=== PATIENT | female | born 1940 | race Caucasian/White ===

== ENCOUNTER 2018-10-05 19:20 | Inpatient (IN) | payer MEDICARE ==
[~2018-10-05] VITALS: Ht 170.2 cm; Wt 80.8 kg
--- NOTE | 2018-10-05 20:07 | NUR ---
PT SENT [facility] FOR CT OF LEFT ARM/SHOULDER. PT HAS PAIN WITH MOVEMENT. VSS. HX OF HTN AND [place] IN 2015. SLING IN PLACE TO SUPPORT ARM. CALL LIGHT IN REACH
[2018-10-05] MEDS ORDERED: ONDANSETRON 2MG/ML, 2ML ONE (20:30)
[2018-10-05] MEDS ORDERED: HYDROmorphone 2 MG/ML, 1ML ONE (20:30)
[2018-10-05] MEDS ORDERED: ONDANSETRON 2MG/ML, 2ML IVPush ONE (20:30)
[2018-10-05] MEDS ORDERED: SODIUM CHLORIDE FLUSH 10ML SYR IVF ONE (20:30)
[2018-10-05] MEDS ORDERED: HYDROmorphone 2 MG/ML, 1ML IVPush PRN (20:30)
[2018-10-05 20:37] LABS: BASOPHILS # (AUTO) 0.04 x10^3/uL (0-0.1); BASOPHILS % (AUTO) 0 % (0-1); EOSINOPHILS # (AUTO) 0.06 x10^3/uL (0-0.4); EOSINOPHILS % (AUTO) 1 % (1-7); LYMPHOCYTES % (AUTO) 11 % (22-44); MD NO; MEAN CORPUSCULAR HGB CONC 33.6 g/dL (32.4-35.8); MEAN CORPUSCULAR VOLUME 95.3 fL (80-100); MEAN PLATELET VOLUME 8.3 fL (7.4-10.4); MONOCYTES # (AUTO) 0.97 x10^3/uL (0.2-0.8); MONOCYTES % (AUTO) 9 % (2-9); NEUTROPHILS # (AUTO) 8.23 x10^3/uL (1.8-6.8); NEUTROPHILS % (AUTO) 79 % (42-75); PLATELET COUNT 271 x10^3/uL (130-400); RED BLOOD COUNT 3.89 x10^6/uL (3.82-5.3); RED CELL DISTRIBUTION WIDTH 14.1 % (9.6-15.2)
[2018-10-05] MEDS ORDERED: ASPI-496 PO (20:44)
[2018-10-05] MEDS ORDERED: CARV6.2512 PO (20:44)
[2018-10-05] MEDS ORDERED: LISI40TA PO (20:44)
[2018-10-05] MEDS ORDERED: PRED20TA PO (20:44)
[2018-10-05] MEDS ORDERED: CHLO25TA PO (20:44)
[2018-10-05] MEDS ORDERED: CLON0.1T22 PO (20:45)
[2018-10-05 20:48] LABS: INTERNATIONAL NORMALIZED RATIO 1.03 (0.93-1.1); PROTHROMBIN TIME 10.9 Seconds (9.6-11.5)
[2018-10-05 20:49] LABS: ALANINE AMINOTRANSFERASE 16 U/L (12-78); ALBUMIN 3.8 g/dL (3.4-5.0); ANION GAP 9 mmol/L (5-15); CALCIUM 8.6 mg/dL (8.5-10.1); CHLORIDE 104 mmol/L (98-107); CREATININE 1.28 mg/dL (0.55-1.02)
[2018-10-05 20:51] LABS: ALKALINE PHOSPHATASE 72 U/L (45-117); BILIRUBIN,TOTAL 0.8 mg/dL (0.2-1.0); TOTAL PROTEIN 7.2 g/dL (6.4-8.2)
--- NOTE | 2018-10-05 21:06 | NUR ---
PIV PLACED AND PT MEDICATED FOR PAIN. VSS. PT BACK FROM CT. CALL LIGHT IN REACH
--- NOTE | 2018-10-05 22:15 | NUR ---
PT RESTING. VSS. PT SAYS PAIN HAS IMPROVED AND IS COMFORTABLE. CALL LIGHT IN REACH
[2018-10-05] MEDS ORDERED: SODIUM CHLORIDE FLUSH 10ML SYR IVF PRN (22:30)
[2018-10-05 23:18] VITALS: BP 148/83
[2018-10-05] MEDS: morphine SULFATE 10 MG/ML, 1ML IVPush PRN (23:29)
[2018-10-05] MEDS ORDERED: ONDANSETRON 2MG/ML, 2ML IVPush PRN (23:30)
[2018-10-05] MEDS ORDERED: KETOROLAC 30 MG/1 ML IV PRN (23:30)
[2018-10-05] MEDS ORDERED: HYDROcodone/APAP 5/325 TABLET PO PRN (23:30)
[2018-10-05] MEDS ORDERED: IBUPROFEN 600 MG TABLET PO PRN (23:30)
[2018-10-05] MEDS ORDERED: ACETAMINOPHEN 325 MG TABLET PO PRN (23:30)
[2018-10-05] MEDS ORDERED: ZOLPIDEM 5MG TABLET PO PRN (23:30)
[2018-10-05] MEDS: ENOXAPARIN 40 MG/0.4 ML SQ SCH (23:30)
[2018-10-06 01:36] VITALS: BP 117/74
[2018-10-06] MEDS: morphine SULFATE 10 MG/ML, 1ML IVPush PRN ×2 (05:27→10:03)
[2018-10-06 05:50] LABS: ANION GAP 6 mmol/L (5-15); CHLORIDE 105 mmol/L (98-107)
[2018-10-06 05:52] LABS: CREATININE 1.17 mg/dL (0.55-1.02)
[2018-10-06 06:33] LABS: BASOPHILS # (AUTO) 0.04 x10^3/uL (0-0.1); BASOPHILS % (AUTO) 1 % (0-1); EOSINOPHILS # (AUTO) 0.11 x10^3/uL (0-0.4); EOSINOPHILS % (AUTO) 2 % (1-7); LYMPHOCYTES # (AUTO) 1.28 x10^3/uL (1-3.4); LYMPHOCYTES % (AUTO) 18 % (22-44); MD NO; MEAN CORPUSCULAR HEMOGLOBIN 31.8 pg (27.0-34.8); MEAN CORPUSCULAR HGB CONC 33.5 g/dL (32.4-35.8); MEAN PLATELET VOLUME 8.4 fL (7.4-10.4); MONOCYTES % (AUTO) 11 % (2-9); NEUTROPHILS # (AUTO) 4.74 x10^3/uL (1.8-6.8); NEUTROPHILS % (AUTO) 68 % (42-75); PLATELET COUNT 219 x10^3/uL (130-400); RED CELL DISTRIBUTION WIDTH 13.8 % (9.6-15.2)
[2018-10-06 06:54] VITALS: BP 101/65
[2018-10-06] MEDS: CHLORTHALIDONE 25 MG TABLET PO SCH (09:00)
[2018-10-06] MEDS: ASPIRIN 81 MG TABLET CHEW PO SCH (09:00)
[2018-10-06] MEDS ORDERED: CARVEDILOL 6.25 MG TABLET PO SCH ×2 (09:00→21:00)
[2018-10-06] MEDS ORDERED: LISINOPRIL 20 MG TABLET PO SCH (09:00)
[2018-10-06] MEDS ORDERED: MORPHINE SULFATE 4 MG/ML, 1ML IV PRN (10:30)
[2018-10-06 12:40] VITALS: BP 118/73
[2018-10-06] MEDS: OXYcodone IR 5MG TABLET PO PRN ×3 (12:50→21:32)
[2018-10-06] MEDS ORDERED: OXYC5TAB3 PO (13:32)
[2018-10-06 19:41] VITALS: BP 120/64
[2018-10-06] MEDS: CARVEDILOL 6.25 MG TABLET PO SCH (21:32)
[2018-10-06] MEDS: ENOXAPARIN 40 MG/0.4 ML SQ SCH (23:31)
[2018-10-07 01:34] VITALS: BP 100/64
[2018-10-07 07:59] VITALS: BP 113/71
[2018-10-07] MEDS ORDERED: LISINOPRIL 20 MG TABLET PO SCH (09:00)
[2018-10-07] MEDS: OXYcodone IR 5MG TABLET PO PRN ×2 (09:07→13:44)
[2018-10-07] MEDS: CARVEDILOL 6.25 MG TABLET PO SCH (09:08)
[2018-10-07] MEDS: ASPIRIN 81 MG TABLET CHEW PO SCH (09:08)
[2018-10-07] MEDS: CHLORTHALIDONE 25 MG TABLET PO SCH ×2 (09:09→09:12)
[2018-10-07 13:35] VITALS: BP 102/64
== END 2018-10-07 13:50 | disposition home or self-care (01) | DRG 562 ==
LOC: ED 22:00 → EDIP 22:10 → 4NOR 23:06
PROVIDERS: ADMIT Internal Medicine; ATTEND Internal Medicine
DX: S42.202A Unspecified fracture of upper end of left humerus, initial encounter for closed fracture (principal); N17.0 Acute kidney failure with tubular necrosis; I51.81 Takotsubo syndrome; M35.3 Polymyalgia rheumatica; I10 Essential (primary) hypertension; W01.0XXA Fall on same level from slipping, tripping and stumbling without subsequent striking against object, initial encounter; Y93.89 Activity, other specified; Y92.89 Other specified places as the place of occurrence of the external cause; Y99.8 Other external cause status; I25.2 Old myocardial infarction; Z82.49 Family history of ischemic heart disease and other diseases of the circulatory system; Z80.51 Family history of malignant neoplasm of kidney; Z82.3 Family history of stroke
CPT/HCPCS: 36415; 80048; 80053; 83880; 85025; 85610; 85730; 93005; 93306; 96374; 96375; G0378; J1170; J1650; J2405; J2270; J7512